=== PATIENT | female | born 1990 | race African-American/Black ===

== ENCOUNTER 2021-01-19 00:22 | Outpatient (REF) | payer SELFPAY | END 2021-01-19 00:23 | disposition home or self-care (01) | LOC: HO.MMNH1L 00:22 | PROVIDERS: Visit Provider Family Medicine | DX: Z13.89 Encounter for screening for other disorder (principal) ==

== ENCOUNTER 2021-01-25 00:47 | Outpatient (REF) | payer SELFPAY | END 2021-01-25 00:48 | disposition home or self-care (01) | LOC: HO.MMNH1L 00:47 | PROVIDERS: Visit Provider Family Medicine | DX: Z13.89 Encounter for screening for other disorder (principal) ==